=== PATIENT | female | born 1995 | race Caucasian/White ===

== ENCOUNTER 2017-03-06 08:28 | Day surgery (SDC) | payer BC ==
[~2017-03-06] VITALS: Ht 160 cm; Wt 72.7 kg
[2017-03-06] VITALS (8 sets, daily range): BP systolic 108–116; BP diastolic 61–73; PULSE 69–88
[2017-03-06] MEDS ORDERED: FLONASEALLERGY NS (08:39)
[2017-03-06] MEDS ORDERED: SPRINTEC 35 MCG1 TAB PO (08:39)
[2017-03-06] MEDS ORDERED: ZYRTEC 10MG10 MG PO (08:39)
[2017-03-06 09:39] LABS: BASO # 0.1 (0.0-0.2); BASO % 0.6 % (0.0-2.0); EOS # 0.1 (0.0-0.7); EOS % 0.6 % (0-4.0); GRAN # 9.7 (1.4-6.5); GRAN % 76.3 % (42.2-75.2); HEMATOCRIT 39.4 % (37.0-47.0); HEMOGLOBIN 12.7 g/dl (12.5-16.0); LYMPH # 1.8 (1.2-3.4); LYMPH % 13.8 % (20.0-51.0); MEAN CELL VOLUME 86 fl (80.0-100.0); MEAN CORPUSCULAR HEMOGLOBIN 28 pg (27.0-31.0); MEAN CORPUSCULAR HGB CONC 32 g/dl (33.0-37.0); MEAN PLATELET VOLUME 9.7 fl (7.4-10.4); MONO # 1.1 (0.1-0.6); MONO % 8.4 % (1.7-9.3); PLATELET COUNT 324 K/mm3 (130-400); RED BLOOD COUNT 4.57 M/mm3 (4.10-5.30); REDCELL DISTRIBUTION WIDTH-CV 13.3 % (11.5-14.5); WHITE BLOOD COUNT 12.7 K/mm3 (4.8-10.8)
[2017-03-06 09:41] LABS: PH 5 (5-8); SQUAMOUS EPITHELIAL 0-2 /hpf; URINE APPEARANCE Clear; URINE BACTERIA None Seen /hpf; URINE BILIRUBIN Negative (NEGATIVE); URINE BLOOD Negative (NEGATIVE); URINE COLOR Yellow; URINE GLUCOSE Negative (NEGATIVE); URINE KETONE Negative (NEGATIVE); URINE RBC 0-2 /hpf; URINE UROBILINOGEN Negative (NEGATIVE); URINE WBC 0-2 /hpf
[2017-03-06 09:55] LABS: ADJUSTED CALCIUM 9.1 mg/dL (8.4-10.2); ALBUMIN 4.1 gm/dL (3.5-5.0); BILIRUBIN,TOTAL 0.5 mg/dL (0.0-1.0); C-REACTIVE PROTEIN 2.6 mg/dL (0.0-0.9); CALCIUM 9.2 mg/dL (8.4-10.2); CREATININE, serum 0.71 mg/dL (0.52-1.25); TOTAL PROTEIN 8.1 gm/dL (6.4-8.2)
[2017-03-06] MEDS ORDERED: NORCO 325 MG-51 TAB PO (17:00)
[2017-03-07 01:31] VITALS: BP 122/69; PULSE 101; TEMP 99.1
[2017-03-07 05:36] VITALS: BP 118/71; PULSE 90; TEMP 98.4
[2017-03-07 08:58] VITALS: BP 113/63; PULSE 97; TEMP 98.1
== END 2017-03-07 09:45 | disposition home or self-care (01) ==
LOC: COL.ER 08:28 → SURG 12:28 → COL.ER 12:28 → SURG 12:28 → SDCO 12:47 → SURG 12:47 → SDCO 03-07 09:45
PROVIDERS: Physician Assistant
DX: K35.80 Unspecified acute appendicitis (principal); Z79.3 Long term (current) use of hormonal contraceptives
CPT/HCPCS: OP; J1885; J2270; J2405; J2543; J2704; J2765; J3010; J7030; J7050; Q9967

== ENCOUNTER 2017-03-13 01:05 | Observation (INO) | payer BC ==
[~2017-03-13] VITALS: Ht 160 cm; Wt 72.7 kg
[~2017-03-13 01:05] MED LIST: FLONASEALLERGY NS; NORCO 325 MG-51 TAB PO; SPRINTEC 35 MCG1 TAB PO; ZYRTEC 10MG10 MG PO
[2017-03-13 02:13] LABS: BASO # 0.1 (0.0-0.2); BASO % 0.4 % (0.0-2.0); EOS % 0.1 % (0-4.0); GRAN # 13.6 (1.4-6.5); HEMOGLOBIN 12.2 g/dl (12.5-16.0); LYMPH # 0.9 (1.2-3.4); LYMPH % 5.7 % (20.0-51.0); MEAN CELL VOLUME 84 fl (80.0-100.0); MEAN CORPUSCULAR HEMOGLOBIN 28 pg (27.0-31.0); MEAN CORPUSCULAR HGB CONC 33 g/dl (33.0-37.0); MEAN PLATELET VOLUME 9.3 fl (7.4-10.4); MONO # 1.9 (0.1-0.6); MONO % 11.3 % (1.7-9.3); PLATELET COUNT 338 K/mm3 (130-400); RED BLOOD COUNT 4.43 M/mm3 (4.10-5.30); REDCELL DISTRIBUTION WIDTH-CV 13.1 % (11.5-14.5); WHITE BLOOD COUNT 16.6 K/mm3 (4.8-10.8)
[2017-03-13 02:23] LABS: ADJUSTED CALCIUM 9.4 mg/dL (8.4-10.2); ALBUMIN 3.7 gm/dL (3.5-5.0); BILIRUBIN,TOTAL 1.3 mg/dL (0.0-1.0); CALCIUM 9.2 mg/dL (8.4-10.2); CREATININE, serum 0.71 mg/dL (0.52-1.25); POTASSIUM 3.6 mmol/L (3.4-5.0); TOTAL PROTEIN 7.9 gm/dL (6.4-8.2)
[2017-03-13 03:01] LABS: PH 6 (5-8); SQUAMOUS EPITHELIAL 0-2 /hpf; URINE APPEARANCE Clear; URINE BACTERIA Rare /hpf; URINE BILIRUBIN Negative (NEGATIVE); URINE BLOOD 1+ (NEGATIVE); URINE COLOR Yellow; URINE GLUCOSE Negative (NEGATIVE); URINE KETONE Trace (NEGATIVE); URINE RBC 0-2 /hpf; URINE UROBILINOGEN Negative (NEGATIVE)
[2017-03-13] MEDS ORDERED: ADVIL200 MG PO (05:12)
[2017-03-13 05:28] VITALS: BP 116/69; PULSE 93; TEMP 98.4
[2017-03-13 08:13] VITALS: TEMP 99.6
[2017-03-13 10:14] VITALS: BP 112/68; PULSE 101; TEMP 99.4
[2017-03-13] MEDS ORDERED: AUGMENTIN 400100 ML PO ×2 (12:50→12:54)
[2017-03-13 13:00] LABS: BASO # 0.1 (0.0-0.2); BASO % 0.6 % (0.0-2.0); EOS % 0.1 % (0-4.0); GRAN # 10.1 (1.4-6.5); GRAN % 80.7 % (42.2-75.2); HEMATOCRIT 33.3 % (37.0-47.0); HEMOGLOBIN 10.7 g/dl (12.5-16.0); LYMPH # 0.8 (1.2-3.4); LYMPH % 6.5 % (20.0-51.0); MEAN CELL VOLUME 85 fl (80.0-100.0); MEAN CORPUSCULAR HEMOGLOBIN 27 pg (27.0-31.0); MEAN CORPUSCULAR HGB CONC 32 g/dl (33.0-37.0); MEAN PLATELET VOLUME 9.5 fl (7.4-10.4); MONO # 1.4 (0.1-0.6); MONO % 11.5 % (1.7-9.3); PLATELET COUNT 324 K/mm3 (130-400); RED BLOOD COUNT 3.91 M/mm3 (4.10-5.30); REDCELL DISTRIBUTION WIDTH-CV 13.3 % (11.5-14.5); WHITE BLOOD COUNT 12.5 K/mm3 (4.8-10.8)
[2017-03-13 14:45] VITALS: TEMP 98.7
== END 2017-03-13 15:30 | disposition home or self-care (01) ==
LOC: COL.ER 01:05 → SURG 04:27
PROVIDERS: Nurse Practitioner; Surgery
DX: D72.829 Elevated white blood cell count, unspecified (principal); R00.0 Tachycardia, unspecified
CPT/HCPCS: G0378; J2405; J2543; J7030; J7050; J7120; Q9967